=== PATIENT | male | born 1995 ===

== ENCOUNTER 2018-12-12 03:19 | Emergency (ER) | payer BC ==
--- NOTE | 2018-12-12 08:18 | RAD ---
EXAM: Chest PA and lateral: HISTORY: Chest pain COMPARISON: None FINDINGS: Heart: Normal cardiac silhouette Aorta: Unremarkable Pulmonary vessels: Normal Costophrenic angles: Costophrenic angles are clear. Lungs: No consolidation or masses. Pneumothorax: No pneumothorax Osseous structures: No osseous abnormalities IMPRESSION: No acute cardiopulmonary process.
== END 2018-12-12 04:10 | disposition home or self-care (01) ==
LOC: ERS 03:19
DX: R20.2 Paresthesia of skin (principal); F17.200 Nicotine dependence, unspecified, uncomplicated
CPT/HCPCS: 71046; 93005